=== PATIENT | male | born 1980 | race Caucasian/White ===

== ENCOUNTER 2021-04-14 18:35 | Emergency (ER) | payer OTHER, SELFPAY ==
--- NOTE | ~2021-04-14 | XR_ITS ---
EXAMINATION: XR foot RT min 3V DATE: 04/14/2021 18:54 INDICATION: Right foot pain. TECHNIQUE: 4 views of right foot were obtained. COMPARISON: None. FINDINGS: Bone alignment is normal. No fracture. There is mild osteoarthritis of first metatarsophala ngeal joint. There is an enthesophyte at plantar aspect of calcaneal tuberosity. IMPRESSION: 1. Mild osteoarthritis of first metatarsophalangeal joint. Reviewed, dictated and finalized at location [facility]
[2021-04-14 18:44] VITALS: BP 130/74; PULSE 71; RESP 18; TEMP 36.9; O2SAT 99
--- NOTE | 2021-04-14 18:53 | ED.LOWEXIN ---
HPI - Extremity Injury (Lower) General Chief Complaint: Extremity Injury, Lower Stated Complaint: Rt Foot Pain Time Seen by Provider: 04/14/21 18:55 Source: patient Mode of arrival: ambulatory Limitations: no limitations History of Present Illness HPI Narrative: David De La Cruz is a 40 yo male with PMH of seasonal allergies who comes to express care with R foot injury that occurred last night in his garage. Fell in a pair of lose fitting boots and his R great toe/bottom of foot. States he has been using ibuprofen and icing it and that has not helped much with the pain when he tries to walk is walking primarily on his heel Related Data Home Medications Medication Instructions Recorded Confirmed cetirizine [Zyrtec] 10 mg PO DAILY 04/14/21 04/14/21 Allergies Allergy/AdvReac Type Severity Reaction Status Date / Time No Known Allergies Allergy Verified 04/14/21 18:47 Review of Systems Review of Systems: CONSTITUTIONAL: Denies fever, chills, sweats. EYES: Denies visual changes, redness, discharge. ENT: Denies rhinorrhea, congestion, sore throat, otalgia. CARDIOVASCULAR: Denies chest pain, palpitations, edema. RESPIRATORY: Denies dyspnea, wheezing, cough GASTROINTESTINAL: Denies abdominal pain, nausea, vomiting, diarrhea. GENITOURINARY: Denies dysuria, hematuria, abnormal discharge SKIN: Denies rash or itching. NEUROLOGIC: Denies numbness, or focal weakness. PSYCHIATRIC: Denies anxiety or depression. Right foot pain right great toe and under toe is painful and mildly swollen no bruising PMFSH Past Medical History Medical History Seasonal allergies Family History Family History Grandparent Family history of pancreatic cancer Family history of lung cancer Other Diabetes mellitus Family history of cardiovascular disease Family history of kidney disease Family history of malignant neoplasm Family history of type 2 diabetes mellitus Social History Social History (Updated 04/14/21 @ 19:05 by Julia Apple CNP) Smoking packs per day: 0.5 Smoking cigarettes per day: 10.0 Smoking status: Current every day smoker Alcohol intake: current Comments At time of signature, I agree with nursing past medical, surgical, social and family history. There is no relevant family history pertinent to the presenting complaint. Exam Narrative: GENERAL: This is a well-nourished, well-developed patient, in mild distress. HEAD: normocephalic, atraumatic. EYES: . Sclera clear/white. Vision is grossly intact. EARS: External ears normal. Hearing grossly intact. NOSE: External nose normal without nasal discharge, nares without redness, no rhinorrhea. THROAT: Mucous membranes moist, NECK: Neck supple, non-tender CARDIOVASCULAR: Regular rate and rhythm without murmurs, gallops, or rubs. RESPIRATORY: Diminished to auscultation. Breath sounds equal bilaterally. No wheezes, rales, or rhonchi. GASTROINTESTINAL: Abdomen soft, non-tender, SKIN: warm, intact with no suspicious lesions or rash, good texture and turgor. NEURO: awake, alert, and oriented to person, place and time. There were no obvious focal neurologic abnormalities. Steady gait EXTREMITIES: Normal range of motion. Right great toe is painful is not really able to move it partially due to swelling and to pain no ecchymosis good 2+ pedal pulse of foot BACK: Nontender without deformity Course Course Emergency Course: Patient fell in his garage last night no loose boot and hurt his right great toe X-ray of toe shows no fracture mild osteoarthritis of first metatarsophalangeal joint Recommended Cassius wrap and postop shoe but patient declined Tell patient to continue icing elevation use of ibuprofen and tramadol Follow-up with primary care physician Level of Care: Express Care Visit Vital Signs Vital signs: Vital Signs Temperature 98.5 F 04/14/21
== END 2021-04-14 19:14 | disposition home or self-care (01) ==
PROVIDERS: Emergency Provider Nurse Practitioner; PCP Family Medicine
DX: S93.501A Unspecified sprain of right great toe, initial encounter (principal); W19.XXXA Unspecified fall, initial encounter; F17.210 Nicotine dependence, cigarettes, uncomplicated
CPT/HCPCS: 73630; 99213; G0463

== ENCOUNTER 2021-05-22 13:55 | Emergency (ER) | payer OTHER, SELFPAY ==
--- NOTE | 2021-05-22 14:30 | ED.EYEPROB ---
HPI - Eye Problem General Chief complaint: Eye Problems Stated complaint: Rt Eye Irritation Time Seen by Provider: 05/22/21 15:00 Source: patient and RN notes reviewed Mode of arrival: ambulatory Limitations: no limitations History of Present Illness HPI Narrative: 40-year-old male presents with concern for right eye irritation, redness, pain. He reports a sensation of foreign body. He denies any injury or known foreign body. Reports symptoms started today. He does not wear contact lenses. He denies purulent drainage. Orts watery drainage chief complaint: eye redness Related Data Allergies Allergy/AdvReac Type Severity Reaction Status Date / Time No Known Allergies Allergy Verified 05/22/21 15:03 Review of Systems Review of Systems: CONSTITUTIONAL: Denies malaise, chills, sweats, or fever. EYES: Denies visual changes. Reports right eye redness, irritation, watery discharge. ENT: Denies rhinorrhea, congestion, sinus pain, otalgia or sore throat. SKIN: Denies rash or itching. NEUROLOGIC: Denies numbness, weakness, or headache. PSYCHIATRIC: Denies anxiety or depression. All systems reviewed & are unremarkable except as noted in HPI and below PMFSH Past Medical History Medical History Seasonal allergies Family History Family History Grandparent Family history of pancreatic cancer Family history of lung cancer Other Diabetes mellitus Family history of cardiovascular disease Family history of kidney disease Family history of malignant neoplasm Family history of type 2 diabetes mellitus Social History Social History (Updated 04/14/21 @ 19:05 by Julia Apple CNP) Smoking packs per day: 0.5 Smoking cigarettes per day: 10.0 Smoking status: Current every day smoker Alcohol intake: current Comments At time of signature, agree with nursing past medical, surgical, social and family history. There is no relevant family history pertinent to the presenting complaint Exam Narrative: GENERAL: Well-appearing, well-nourished, and in no acute distress. HEAD: Normocephalic, atraumatic. EYES: PERRLA, sclera clear, and EOMI. No nystagmus. Right conjunctivae injected. Upper and lower eyelid unremarkable, no periorbital edema noted. Corneal abrasion noted upon Nichole lamp exam, see note ENT: Nares clear, turbinates pink, no rhinorrhea or epistaxis. Mucous membranes moist. TM pearly troncoso with sharp light reflex bilaterally; no tragal tenderness. NECK: Supple. CHEST: No respiratory distress. Speaks in full sentences. HEART: Regular rate and rhythm. SKIN: Warm, dry, no visible rash. NEURO: Alert and oriented x3. PSYCH: Normal mood and affect Course Course Emergency Course: Patient is aware of diagnosis, understands and agrees to treatment plan. Anticipatory guidance given. Patient agrees to follow-up as directed and is aware of reasons to seek care at the emergency department. Portions of this record may have been created with voice recognition software Level of Care: Express Care Visit Vital Signs Vital signs: Vital Signs Temperature 98.3 F 05/22/21 14:45 Pulse Rate 90 05/22/21 14:45 Respiratory Rate 20 05/22/21 14:45 Blood Pressure 133/77 05/22/21 14:45 Pulse Oximetry 99 05/22/21 14:45 Temperature 98.3 F 05/22/21 14:45 Pulse Rate 90 05/22/21 14:45 Respiratory Rate 20 05/22/21 14:45 Blood Pressure 133/77 05/22/21 14:45 Pulse Oximetry 99 05/22/21 14:45 Reviewed. Procedures Other Procedure Procedure 1: Other Procedure: Tetracaine 1 gtt instilled in right eye, fluorescein stain applied. Corneal abrasion noted upon nichole lamp exam at approximately 3 o'clock in relation to the pupil. Eye washed with NS 100 ml. No foreign bodies or Orestes sign noted. MDM - Eye Problem MDM Narrative Medical decision making narrative: Consideration of the follo
[2021-05-22 14:45] VITALS: BP 133/77; PULSE 90; RESP 20; TEMP 36.8; O2SAT 99
== END 2021-05-22 15:28 | disposition home or self-care (01) ==
PROVIDERS: Emergency Provider Nurse Practitioner; PCP Family Medicine
DX: S05.01XA Injury of conjunctiva and corneal abrasion without foreign body, right eye, initial encounter (principal); X58.XXXA Exposure to other specified factors, initial encounter; F17.210 Nicotine dependence, cigarettes, uncomplicated
CPT/HCPCS: 99213; A9270; G0463